=== PATIENT | male | born 2000 | race American Indian/Alaskan Native ===

== ENCOUNTER 2022-01-22 19:49 | Emergency (ER) | payer MEDICAID ==
[2022-01-22 20:31] VITALS: BP 135/74
== END 2022-01-23 16:32 | disposition left against medical advice (07) ==
LOC: ED 19:49
DX: S90.829A Blister (nonthermal), unspecified foot, initial encounter (principal); Z53.21 Procedure and treatment not carried out due to patient leaving prior to being seen by health care provider; X58.XXXA Exposure to other specified factors, initial encounter; Y93.89 Activity, other specified; Y92.89 Other specified places as the place of occurrence of the external cause; Y99.8 Other external cause status